=== PATIENT | female | born 1985 | race Caucasian/White ===

== ENCOUNTER 2017-03-03 09:26 | Emergency (ER) | payer BC, SELFPAY ==
[2017-03-03 09:35] VITALS: BP 142/83; PULSE 86; RESP 18; TEMP 36.9; O2SAT 96; BMI 39.0
--- NOTE | 2017-03-03 09:49 | HMH.EDURI ---
ED Disposition Clinical Impression: Acute bronchitis Disposition: Home, Self-Care Condition on Discharge: Good Instructions: DI for Acute Bronchitis Additional Instructions: Additional instructions for ACUTE BRONCHITIS: Use Tylenol or Ibuprofen for pain or fever. Rest and plenty of fluids. Return immediately if you have an uncontrollable fever greater than 102 degrees, severe headache or neck stiffness, difficulty breathing or shortness of breath, persistent vomiting, severe sore throat or inability to swallow. See your physician if not improving in 4-5 days. Prescriptions: Albuterol Sulfate [Proair Hfa 90mcg/puff Inh] 2 puffs IH Q4HP PRN #1 inh PRN Reason: Shortness Of Breath Or Wheezing Azithromycin [Z-Isma 250mg Tab] 250 mg PO UD DOSE PK #6 tab Benzonatate [Tessalon Perle 100mg Cap] 100 mg PO TIDP PRN #20 cap PRN Reason: Cough - Critical Care Critical Care Time: No Attestation: On , the high probability of a clinically significant, sudden or life threatening deterioration of the following system(s) required my full and direct attention, intervention and personal management. The time I documented below is in addition to time spent performing reported procedures but includes the following listed in this critical care notation. Medical Decision Making Vital Signs: 03/03/17 09:35 Temperature 98.5 F Temperature Source Oral Pulse Rate [Right Brachial] 86 Respiratory Rate 18 Blood Pressure [Right Arm] 142/83 Blood Pressure Mean [Right Arm] 102 Blood Pressure Source [Right Arm] Automatic Cuff Blood Pressure Position [Right Arm] Supine 02 Sat by Pulse Oximetry 96 Oxygen Delivery Method Room Air - Lab Data Lab results reviewed: Yes: I reviewed the patient's lab results. Lab Results 03/03/17 09:37: Influenza Type A Ag Negative, Influenza Type B Ag Negative - Radiology Data #1 Image(s): Chest Image Reviewed: Yes I have reviewed radiologist's interpretation X-ray interpreted by radiologist: Post-Inflammatory scarring left base - Primitivo Inquiry Pt receiving controlled substance: No URI/Sore Throat HPI - General Chief Complaint: Upper Respiratory Infection Stated Complaint: soa,fever,headache,earache Mode of Arrival: Ambulatory Limitations: No Limitations Description of Symptoms (Recalled from ER Triage Doc. by RN): cough,sinus pressure,congestion - History of Present Illness HPI Narrative: The patient has been sick for 3 days. She has a cough, producing little sputum. Intermittent rhinorrhea. Throat feels swollen, but improves with ibuprofen. Right ear was hurting during the night last night, but is now better. Generalized body aches. No vomiting or diarrhea. Lightheadedness when she stands up, feels like she might pass out. no flu shot this year. Feels short of air, especially at night. Has trouble sleeping the past 3 nights. States she always wheezes because of smoking. Has an albuterol inhaler, but does not use it because it makes her shaky, does not know where it is, it is 3 years old. - Related Data Previous Rx's Medication Instructions Recorded Albuterol Sulfate [Proair Hfa 2 puffs IH Q4HP PRN #1 inh 03/03/17 90mcg/puff Inh] Azithromycin [Z-Isma 250mg Tab] 250 mg PO UD DOSE PK #6 tab 03/03/17 Benzonatate [Tessalon Perle 100mg 100 mg PO TIDP PRN #20 cap 03/03/17 Cap] Allergies Allergy/AdvReac Type Severity Reaction Status Date / Time Codeine Allergy Unknown Uncoded 02/06/17 15:16 [facility] History I have reviewed the patient's past medical history: Yes Medical History: Denies:: Cancer, Diabetes Mellitus Type 1, Diabetes Mellitus Type 2 - *Social History Educational Level: Completed High School Smoking Status: Current every day smoker Tobacco Type: cigarettes Alcohol Intake: never Substance Use Type: unknown Last Used Substance: unknown - Psychiatric History Expresses thoughts of harming self/others: None Suicide Plan Description: No Plan ROS Ob
--- NOTE | 2017-03-03 09:53 | XR_ITS ---
XR chest 2V COMPARISON: None HISTORY: Cough and congestion TECHNIQUE: PA and lateral chest FINDINGS: The lung velázquez are well expanded. There is minimal post inflammatory scarring at the left base with blunting of left costophrenic angle. Cardiac size is normal and the vascularity is normal. IMPRESSION: Minimal left basilar pleural-parenchymal scarring, no acute chest pathology noted
[2017-03-03 10:30] VITALS: BP 121/75; PULSE 82; RESP 16; TEMP 36.7
== END 2017-03-03 10:32 | disposition home or self-care (01) ==
PROVIDERS: Emergency Provider Emergency Medicine
DX: J20.9 Acute bronchitis, unspecified (principal); F17.210 Nicotine dependence, cigarettes, uncomplicated
CPT/HCPCS: 71046; 87275; 87276; 99283

== ENCOUNTER 2020-01-27 16:43 | Emergency (ER) | payer BC, SELFPAY ==
--- NOTE | 2020-01-27 17:20 | XR_ITS ---
PROCEDURE: XR RIBS RT MIN 3V W CXR1V CLINICAL INDICATION: RIB PAIN Left-sided chest pain COMPARISON: CR CXR2V XR chest 2V from 03/03/2017 FINDINGS: Frontal view of the chest shows no acute finding. Multiple views of the left ribs are obtained. No acute fracture is evident. There is some minimal atelectatic changes in the left mid lung. There is mild thoracic curvature convex left and lumbar curvature convex right IMPRESSION: No acute findings. Dictated by: Jose Mckeon MD 01/27/2020 18:21 Jose Mckeon MD in [place] 01/27/2020 18:21
[2020-01-27 17:22] VITALS: BP 129/75; PULSE 75; RESP 18; O2SAT 98; BMI 29.0
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
[2020-01-27 18:35] VITALS: BP 129/75; PULSE 75; RESP 18; TEMP 36.7; O2SAT 98
== END 2020-01-27 18:35 | disposition home or self-care (01) ==
LOC: ER 16:54 → UTC 16:54
PROVIDERS: Emergency Provider Nurse Practitioner; PCP Family Medicine
DX: S20.211A Contusion of right front wall of thorax, initial encounter (principal); S05.12XA Contusion of eyeball and orbital tissues, left eye, initial encounter; Y04.2XXA Assault by strike against or bumped into by another person, initial encounter; Y92.019 Unspecified place in single-family (private) house as the place of occurrence of the external cause; F17.210 Nicotine dependence, cigarettes, uncomplicated; Z88.5 Allergy status to narcotic agent
CPT/HCPCS: 71101; 99201